=== PATIENT | male | born 1980 | race Caucasian/White ===

== ENCOUNTER 2016-09-27 08:12 | Outpatient (CLI) | payer OTHER ==
[~2016-09-27] VITALS: Ht 160 cm; Wt 57.3 kg
--- NOTE | ~2016-09-27 | HC ---
[facility] [place] [address] CONSULTATION Name: SUNNY SPANGLER Room #: DEP CL [place]#: [id number] Admission: 09/27/16 Attend Phys: Carlos A Chauhan Discharge: 09/30/16 Date of : 76 Report #: [id number] THIS REPORT FOR: //name// CC: Janet Singh DATE OF SERVICE: 09/27/2016 REASON FOR CONSULTATION: End-stage renal disease with hyperkalemia requiring hemodialysis. HISTORY OF PRESENT ILLNESS: This is a 36-year-old male who has end-stage renal disease and is a chronic hemodialysis patient. He has had a difficult past short period of time. He had apparently fallen at home, [facility], was transferred to [facility]. He has been at [facility] for the past couple of weeks. He has been dialyzing there. On his last dialysis day, which was 09/24/2016, he was noted to have a clotted fistula. It was arranged for him to come to [facility] today for a thrombectomy of the fistula, but upon arrival his potassium was 6.4, someone had a concern for this so a temporary dialysis catheter was placed and he was admitted to the hospital. He has still not received dialysis in spite of the fact he was suppose to go back to do dialysis at [facility]. In talking with the patient, he states he feels okay. It is somewhat remarkable that this fistula is the same fistula that he has had for 11 years of dialysis. His tells me it has been declotted about 6 times over the years. Diagnosis for his ESRD is hypertension, although there is a substantially strong family history that makes me wonder if this was not really focal sclerosis. He does have hypertension. He has had severe secondary hyperparathyroidism. He was actually [facility]roidectomy, but while there had a cardiac evaluation which showed substantial ischemic disease; he ended having 2 coronary artery stents placed for the coronary artery disease. He has anemia of end-stage renal disease. He has had bilateral hip replacement. He has had bilateral knee surgeries for patellar tendon ruptures. MEDICATIONS: Xanax 1 mg q. 8 hours p.r.n., amlodipine 10 mg daily, aspirin 81 mg daily, atorvastatin 20 mg daily, buspirone 10 mg t.i.d., PhosLo 667 mg t.i.d. with meals as a phosphate binder, Cinacalcet 45 mg daily, clonidine 0.1 mg b.i.d., Aranesp 25 mcg weekly for anemia, Colace, Marinol 2.5 mg t.i.d., Nephrocaps 1 daily, Venofer 200 mg, metoprolol 100 mg b.i.d., Remeron 7.5 mg at bedtime, pantoprazole 40 mg daily, Seroquel 25 mg, sertraline 100 mg daily, Renvela 3200mg t.i.d. with meals, Brilinta 90 mg q. 12 hours, Zanaflex 4 mg q. 8 hours for muscle spasm. ALLERGIES: MORPHINE causing itchiness and BENADRYL which causes leg shakes. [facility] [address] [place] [address] CONSULTATION Name: SUNNY SPANGLER Room #: DEP RHONDA Sarah#: [id number] Admission: 09/27/16 Attend Phys: Carlos A Chauhan Discharge: 09/30/16 Date of : 76 Report #: [id number] FAMILY HISTORY: Positive for renal failure in several different members of his family. His mother also had diabetes. SOCIAL HISTORY: The patient is , accompanied by his and 2 children at this time. He is disabled. He lives in [place], [place]. There has been difficulty because of him living in a house with stairs and he is now nonambulatory as far as working out living arrangements. REVIEW OF SYSTEMS: He is nonambulatory. He gets around in a wheelchair which he flores himself, but he does not have a way of getting up and down stairs around the house. He has chronic pain right now. Denies dyspnea, denies chest pain or palpitations and he denied that before he had the stents placed in his heart. Denies nausea or vomiting, tends to get constipated. He makes no urine at all; says his dialysis is fairly uneventful, gains are small in the intradialytic period. PHYSICAL EXAMINATION: GENERAL: Pleasant 36-year-old male, awake and responsive. He is lying in bed. He did have braces on both legs. VITAL SIGNS: Blood pressure 175/99, heart rate 67, temperature 98.3, oxygen saturation 99%. HEENT: Shows pupils are equal and reactive. Sclerae nonicteric. Oral mucosa is moist. NECK: Veins are not distended. CHEST: Clear bilaterally. HEART: Has a regular rate and rhythm. ABDOMEN: Has active bowel sounds. It is soft and nontender. No organomegaly or masses are palpable. EXTREMITIES: Show a very atrophic muscles in the legs. He has had multiple surgeries based on his scars. Left forearm radiocephalic fistula is in place, but is thrombosed rather densely. LABORATORY DATA: Sodium 136, potassium 6.4, chloride 98, bicarbonate 25, BUN 78, creatinine 13.0, calcium 8.0. White count 7.6, hemoglobin 10.0, hematocrit 31.0, platelets 475,000. ASSESSMENT: 1. End-stage renal disease. He has not had dialysis in 5 days. He is hyperkalemic. He needs dialysis. He has had a temporary catheter placed because he did not want to declot his fistula. We will dialyze him tonight and hopefully get him stable. He has been on dialysis now for many years and has suffered lot of the ravages of long-term end-stage renal disease with maybe not the most optimal care of himself. 2. Hypertension, on medications. 3. Anemia of end-stage renal disease, on Aranesp. 4. Secondary hyperparathyroidism. [facility] [address] [place] [address] CONSULTATION Name: SUNNY SPANGLER Room #: DEP RHONDA Sarah#: [id number] Admission: 09/27/16 Attend Phys: Carlos A Chauhan Discharge: 09/30/16 Date of : 76 Report #: [id number] 5. Hyperkalemia, again in need of dialysis today. PLAN: 1. Dialysis today. We will run him 3-1/2 hours on 2 potassium dialysate with only minimal ultrafiltration as ____. 2. Repeat labs in the morning. 3. We will follow along with care of this patient. <ELECTRONICALLY SIGNED> By: Suman Willoughby MD 10/06/16 1127 [id number] 2038 Abdiaziz Landry MD /penny
--- NOTE | ~2016-09-27 | H ---
[facility] [place] [address] HISTORY AND PHYSICAL Name: SUNNY SPANGLER Room #: 308-P [facility]..#: [id number] Admission: 09/27/16 Attend Phys: Carlos A Chauhan Discharge: Date of : 76 Report #: [id number] THIS REPORT FOR: //name// CC: Janet Singh DATE OF SERVICE: 09/27/2016 HISTORY OF PRESENT ILLNESS: The patient is a 36-year-old male who was transferred from [facility] to [facility] for malfunctioning AV shunt for his dialysis. The patient was found to have hyperkalemia. For this reason, he had his temporary dialysis catheter placed and after that he was admitted to the hospital for urgent hemodialysis. The patient was supposed to have this procedure done on Tuesday, but unfortunately the patient refused to go to [facility] and now he is at [facility] hoping to have this carried on today. PAST MEDICAL HISTORY: Significant for end-stage renal disease, on hemodialysis. The patient has history of hypertension. He had history of fracture of both femurs and he is treated conservatively without any surgery. The patient is treated with pain management. MEDICATIONS: Reviewed and reconciled. SOCIAL HISTORY: The patient smokes about half a pack of cigarettes a day. No history of alcohol use or drug use. FAMILY HISTORY: Noncontributory. ALLERGIES: MORPHINE and diphenhydramine. PHYSICAL EXAMINATION: VITAL SIGNS: On arrival to the hospital, the patient's temperature was 97.0, pulse 64, respirations 16, blood pressure 164/99. HEAD AND NECK: Unremarkable. NECK: Supple. LUNGS: Clear to auscultation. CARDIAC: S1, S2. ABDOMEN: Benign. Bowel sounds were positive. EXTREMITIES: Without any edema. LABORATORY DATA: The patient's lab showed white count of 7.6, hemoglobin 10, hematocrit 31, platelet count 475. The patient's INR was 1.1. The patient's basic metabolic panel showed a sodium of 136, potassium 6.4, chloride 98, bicarbonate 25, BUN 78, creatinine 13, glucose 78, calcium 8.0. The patient's chest x-ray showed no acute intrathoracic process, right temporary dialysis catheter in good position. A 12-lead EKG showed sinus rhythm, probable left [facility] [address] [place] [address] HISTORY AND PHYSICAL Name: SUNNY SPANGLER Room #: 308-P [facility] RHONDA Sarah#: [id number] Admission: 09/27/16 Attend Phys: Carlos A Chauhan Discharge: Date of : 76 Report #: [id number] ventricular hypertrophy, anterior Q wave possibly due to left ventricular hypertrophy, no previous EKG to compare with. ASSESSMENT AND PLAN: 1. Hyperkalemia. 2. End-stage renal disease, on hemodialysis. 3. Nausea and vomiting. 4. Bilateral femur fractures. The patient to resume his medications. The patient is supposed to have procedures to declog his dialysis catheter today. We will give the patient Zofran and do a KUB on the abdomen because of his nausea and vomiting and we will continue monitoring the patient. <ELECTRONICALLY SIGNED> By: Janet Kumari MD 09/29/16 0735 0636 0737 Janet Kumari MD /nt
--- NOTE | ~2016-09-27 | EKG ---
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
[2016-09-27] MEDS ORDERED: ARANESP25 MCG/1 M SUBQ (08:30)
[2016-09-27] MEDS ORDERED: BUSPIRONE HCL10 MG PO (08:31)
[2016-09-27] MEDS ORDERED: MARINOL 2.5 MG2.5 M1 PO (08:31)
[2016-09-27] MEDS ORDERED: VENOFER100 MG/52 IV (08:32)
[2016-09-27] MEDS ORDERED: LIDOCAINE 22 %/30 GM TOP (08:33)
[2016-09-27] MEDS ORDERED: SEROQUEL 25 MG25 M1 PO ×2 (08:34→15:18)
[2016-09-27] MEDS ORDERED: ZOLOFT50 MG PO (08:34)
[2016-09-27] MEDS ORDERED: VELTASSA8.4 GM PO (08:35)
[2016-09-27] MEDS ORDERED: REMERON15 MG PO (08:35)
[2016-09-27] MEDS ORDERED: NEPRO CARB STE237 ML PO (08:35)
[2016-09-27] MEDS ORDERED: RENAL CAPS SOFTG1 MG PO (08:35)
[2016-09-27] MEDS ORDERED: SENSIPAR90 MG PO (08:36)
[2016-09-27] MEDS ORDERED: BRILINTA90 MG PO (08:36)
[2016-09-27] MEDS ORDERED: NORVASC10 MG PO (08:36)
[2016-09-27] MEDS ORDERED: PROTONIX40 M1 PO (08:37)
[2016-09-27] MEDS ORDERED: COLACE100 MG PO (08:37)
[2016-09-27] MEDS ORDERED: LIPITOR 20 MG T20 M1 PO (08:38)
[2016-09-27] MEDS ORDERED: CLONIDINE0.1 PO (08:38)
[2016-09-27] MEDS ORDERED: METOPROLOL TAR100 MG PO (08:38)
[2016-09-27] MEDS ORDERED: VOLTAREN GEL 1100 G2 TOP (08:39)
[2016-09-27] MEDS ORDERED: RENVELA800 MG PO (08:39)
[2016-09-27] MEDS ORDERED: PHOSLO667 MG PO (08:40)
[2016-09-27 08:42] VITALS: BP 164/99
[2016-09-27 10:22] LABS: MCH 27.9 pg (26.0-34.0); MCHC 32.3 g/dL (28.0-37.0); MCV 86.4 fL (80.0-100.0); RBC 3.58 mil/uL (4.50-6.00); WBC 7.6 thou/uL (4.0-11.0)
[2016-09-27 10:33] LABS: INR 1.1; PROTIME 11.3 Seconds (9.3-11.4)
[2016-09-27 10:37] LABS: POTASSIUM 6.4 mmol/L (3.5-5.1)
[2016-09-27] MEDS ORDERED: XANAX1 MG PO (15:13)
[2016-09-27] MEDS ORDERED: ASPIR 8181 MG PO (15:13)
[2016-09-27] MEDS ORDERED: HEPARIN 1,100 UNIT/1 SUBQ (15:14)
[2016-09-27] MEDS ORDERED: DILAUDID1 MG/1 ML IV PUSH (15:15)
[2016-09-27] MEDS ORDERED: HYDROXYZINE HCL25 M1 PO (15:16)
[2016-09-27] MEDS ORDERED: ONDANSETRON HCL4 M3 PO (15:17)
[2016-09-27] MEDS ORDERED: ZANAFLEX4 MG PO (15:19)
[2016-09-27] MEDS ORDERED: DILAUDID 2 MG TA2 MG PO (15:20)
[2016-09-27 16:00] VITALS: BP 175/99
[2016-09-27 23:30] VITALS: BP 143/99
[2016-09-28 04:15] VITALS: BP 151/93
[2016-09-28 07:13] VITALS: BP 151/93
[2016-09-28 07:47] LABS: CALCIUM 8.3 mg/dL (8.5-10.1)
[2016-09-28 07:50] LABS: CREATININE 6.5 mg/dL (0.7-1.3); POTASSIUM 4.8 mmol/L (3.5-5.1)
[2016-09-28 08:22] LABS: ABSOLUTE NEUTROPHILS 4.9 thou/uL (1.4-8.2); BASOPHILS 0.6 % (0.0-2.0); EOSINOPHILS 3.2 % (0.0-3.0); HEMOGLOBIN 9.6 gm/dL (14.0-18.0); MCH 28.6 pg (26.0-34.0); MCHC 33.1 g/dL (28.0-37.0); MCV 86.4 fL (80.0-100.0); MONOCYTES 6.9 % (1.0-8.0); PLATELET COUNT 410 thou/uL (150-400); POLYS 74.3 % (36.0-66.0); RBC 3.35 mil/uL (4.50-6.00); RDW 15.8 % (10.5-14.5); WBC 6.6 thou/uL (4.0-11.0)
[2016-09-28 08:25] LABS: MANUAL DIFF NO
[2016-09-28 08:40] VITALS: BP 146/96
[2016-09-28 14:40] VITALS: BP 146/96
[2016-09-28 17:20] VITALS: BP 151/92
[2016-09-28 20:10] VITALS: BP 121/85
[2016-09-29 03:55] VITALS: BP 91/65
[2016-09-29 16:44] VITALS: BP 108/63
[2016-09-29 19:22] VITALS: BP 110/82
[2016-09-30 04:34] VITALS: BP 103/79
[2016-09-30 07:20] VITALS: BP 127/64
[2016-09-30 16:52] VITALS: BP 119/78
== END 2016-09-30 19:41 | disposition home or self-care (01) ==
LOC: SPEC 08:12 → 3N 08:12 → SPEC 09-30 18:32 → 3N 09-30 18:32 → SPEC 09-30 19:41
PROVIDERS: Internal Medicine; Radiology Vascular & Interventional Radiology
DX: T82.590A Other mechanical complication of surgically created arteriovenous fistula, initial encounter (principal); I12.0 Hypertensive chronic kidney disease with stage 5 chronic kidney disease or end stage renal disease; N18.6 End stage renal disease; Z99.2 Dependence on renal dialysis; Z87.81 Personal history of (healed) traumatic fracture; F17.210 Nicotine dependence, cigarettes, uncomplicated; Z88.8 Allergy status to other drugs, medicaments and biological substances
CPT/HCPCS: 10096; 32100

== ENCOUNTER 2016-11-24 14:18 | Inpatient (IN) | payer OTHER ==
[~2016-11-24] VITALS: Ht 160 cm; Wt 52.7 kg
--- NOTE | ~2016-11-24 | HC ---
[facility] [place] [address] CONSULTATION Name: SUNNY SPANGLER Room #: 412-P [facility] IN M.R.#: [id number] Admission: 11/24/16 Attend Phys: Janet Kumari MD Discharge: 11/30/16 Date of : 76 Report #: [id number] THIS REPORT FOR: //name// CC: Janet Kumari REASON FOR CONSULTATION: End-stage renal disease. REASON FOR ADMISSION: Transferred from [facility]. HISTORY OF PRESENT ILLNESS: The patient is a 36-year-old who is known to have end-stage renal disease for the last 10 years. He has a very complicated orthopedic history. This dates back to his stay in a [facility] when he fell and broke his bilateral hips and was treated accordingly. Apparently, the patient did not improve and he was transferred to [facility] for second opinion and from there he was told that there is not much to do and he was transferred to [facility]. He has done all his care at [facility] and was arranged to be admitted to [facility] for an orthopedic opinion. I am being asked to manage his end-stage renal disease. The patient had been on dialysis as I have stated for the last 10 years. He was just discharged from [facility] back in 09/2016 after he was admitted for hyperkalemia and had thrombosed AV fistula. He suffers from severe bone disease related to his end-stage renal disease. He tells me that he had been on dialysis for the last 10 years and has end-stage renal disease due to hypertension. He is also known to have coronary artery disease, status post stent x 2. PAST MEDICAL HISTORY: 1. End-stage renal disease, maintained on dialysis. 2. Bilateral hip replacement. 3. Left femur fracture. 4. Hypertension. 5. Bedridden. 6. Coronary artery disease. 7. Status post cath and stenting. 8. Hyperparathyroidism. 9. Hypothyroidism. 10. Renal osteodystrophy. 11. Seizure disorder. 12. Congenital valvular insufficiency. FAMILY HISTORY: Very significant for end-stage renal disease. SOCIAL HISTORY: He is , bedridden, disabled. MEDICATIONS: Currently, the patient is maintained on the following medications: 1. . 2. Iron. [facility] [address] [place] [address] CONSULTATION Name: SUNNY SPANGLER Room #: 412-P DIS IN M.R.#: [id number] Admission: 11/24/16 Attend Phys: Janet Kumari MD Discharge: 11/30/16 Date of : 76 Report #: [id number] 3. Mirtazapine. 4. Folic acid. 5. Cinacalcet. 6. Amlodipine. 7. Pantoprazole. 8. Metoprolol. 9. Atorvastatin. 10. Hydroxyzine. REVIEW OF SYSTEMS: GENERAL: No fever or chills. CARDIOVASCULAR: No chest pain or palpitation. PULMONARY: No cough or hemoptysis. GASTROINTESTINAL: No nausea or vomiting. MUSCULOSKELETAL: Diffuse musculoskeletal issues as described in the history of present illness. PHYSICAL EXAMINATION: VITAL SIGNS: Temperature was 36.6, blood pressure was 108/70. HEAD AND NECK: No jugular venous distention, no bruit, no thyromegaly. CHEST: Clear to auscultation bilaterally. CARDIOVASCULAR: Regular with no rub detected. There is a soft systolic murmur. ABDOMEN: Soft, nontender, without hepatosplenomegaly. LOWER EXTREMITIES: No edema with intact peripheral pulses. Upper extremity, left AV fistula. LABORATORY DATA: Laboratory values reviewed. ASSESSMENT, IMPRESSION AND PLAN: 1. End-stage renal disease. 2. Severe renal osteodystrophy. 3. Coronary artery disease. 4. Hypertension. 5. Hyperparathyroidism. 6. Hypothyroidism. 7. Dialysis will be arranged for the patient tomorrow. 8. Resume his medications. 9. The patient related to me that he is not going back to [facility] and he will going back to his dialysis unit. I made a call to his dialysis unit and informed them that the patient wants to get back to their dialysis unit and will have to arrange with a social research assistant regarding that. [address] [address] CONSULTATION Name: SUNNY SPANGLER Room #: 412-P [facility] IN M.R.#: [id number] Admission: 11/24/16 Attend Phys: Janet Kumari MD Discharge: 11/30/16 Date of : 76 Report #: [id number] 10. I doubt that there is anything to be done for his skeletal issues that I will defer to the primary and orthopedic. <ELECTRONICALLY SIGNED> By: Rosemarie Guan MD 12/04/16 1126 [id number] Rosemarie Guan MD /nt
--- NOTE | ~2016-11-24 | HC ---
[facility] [place] [address] CONSULTATION Name: SUNNY SPANGLER Room #: 412-P ADM IN M.R.#: [id number] Admission: 11/24/16 Attend Phys: Janet Kumari MD Discharge: Date of : 76 Report #: [id number] THIS REPORT FOR: //name// CC: Janet Kumari DATE OF SERVICE: 11/26/2016 HISTORY OF PRESENT ILLNESS: The patient is a 36-year-old male with history of end-stage renal disease on hemodialysis. Initially, evaluated at [facility] after falling and breaking bilateral hips. He was treated conservatively. He was taken to [facility] for second opinion and they agreed with the conservative treatment. He is bone stalk is quite poor with his end-stage renal disease. He was transferred to [place], but they have not been able to do any significant therapy without clearance form Ortho. He was transferred to [facility] for another Ortho assessment. He was seen by Orthopedics. They are the at nonweightbearing bilateral lower extremities. He is allowed some strengthening of the upper body, but only very light range of motion in lower extremities. He has had some hemoptysis and is being seen by Pulmonary. We are seeing him in rehabilitation medicine consultation. PAST MEDICAL HISTORY: Includes end-stage renal disease, on hemodialysis. He has been wheelchair bound for 4 years. He has a history of bilateral hip replacements, previous left femur fracture. He had surgery with immobilizer of both legs, MS x 2, osteoporosis, pneumonia, renal osteodystrophy, seizure disorder, left shoulder fracture, history of TIA, congenital insufficiency of the aortic valve. MEDICATIONS: Please see the full medication listing. HABITS: Tobacco, less than 1 pack per day. Alcohol use, no. SOCIAL HISTORY: House, , and sons who are young and of stocky build. There is a ramp, although there are steps that the family has been carrying him back and forth. He has a hospital bed commode, Yamil lift, wheelchair, ramp, they sponge bath the patient. They have found it easier actually to lift the patient rather than utilizing the Yamil lift mechanically as he is a very small man as far as boy habitus. The patient and are very adamant about wanting to return directly back home. The notes she has cared for the patient like this in the past. REVIEW OF SYSTEMS: Did not offer any current complaints of chest pain, shortness of breath or abdominal discomfort. He does have some chronic extremity pain complaints. PHYSICAL EXAMINATION: [facility] [address] [place] [address] CONSULTATION Name: SUNNY SPANGLER Room #: 412-P [facility] IN M.R.#: [id number] Admission: 11/24/16 Attend Phys: Janet Kumari MD Discharge: Date of : 76 Report #: [id number] GENERAL: A 36-year-old small statured male in no obvious distress. He is alert, pleasant. VITAL SIGNS: He is 5 feet 3 inches and weighs 114 pounds. HEENT: Appeared to be benign. Cranial nerves are grossly intact. EXTREMITIES: Upper extremities revealed functional range of motion with strength around a grade 4- to 3+/5. Lower extremities, he has the incision scars from the prior knee surgeries. No focal calf swelling. He does have 1+ distal edema. He tends to hold the legs external rotated. I only had him do very mild movement of the lower extremities now I would grade his strength at probably a grade 3 to 3+/5. ASSESSMENT: A 36-year-old white male with the following problem list: 1. Chronic femur fractures, nonweightbearing. 2. Wheelchair bound for 3 years. 3. End-stage renal disease, on hemodialysis. 4. Osteoporosis. 5. Renal osteodystrophy. 6. Prior bilateral hip replacements. 7. Chronic pain disorder. 8. Prior left shoulder fracture. 9. Seizure disorder. 10. Myocardial infarction x 2. PLAN: Family has cared for him before in a similar situation. and sons have lifted him into the wheelchair and he has the equipment issues, hospital bed commode, Yamil lift, wheelchair, ramp, etc., all as delineated above. The patient and very much want to return directly back home and the indicates that she would feel comfortable caring for him again. The patient's son is present as well. I am going to have the therapist work with the and family including both PT and OT reviewing transfer issues, ADLs, equipment issues, etc. in preparation for discharge back to the home setting. He is currently being observed by Pulmonary as well with his hemoptysis. Case management to assist as they are. I would anticipate he should be able to return directly back home with some home healthcare in the near future once education and training with the family is successfully done and he has felt medically stabilized for discharge. Thank you for asking us to assist in this patient's care and further orders are entered. By: [id number] Kole Hubbard MD /BERTA
[~2016-11-24 14:18] MED LIST: ARANESP25 MCG/1 M SUBQ; ASPIR 8181 MG PO; BRILINTA90 MG PO; BUSPIRONE HCL10 MG PO; CLONIDINE0.1 PO; COLACE100 MG PO; DILAUDID 2 MG TA2 MG PO; DILAUDID1 MG/1 ML IV PUSH; HEPARIN 1,100 UNIT/1 SUBQ; HYDROXYZINE HCL25 M1 PO; LIDOCAINE 22 %/30 GM TOP; LIPITOR 20 MG T20 M1 PO; MARINOL 2.5 MG2.5 M1 PO; METOPROLOL TAR100 MG PO; NEPRO CARB STE237 ML PO; NORVASC10 MG PO; ONDANSETRON HCL4 M3 PO; PHOSLO667 MG PO; PROTONIX40 M1 PO; REMERON15 MG PO; RENAL CAPS SOFTG1 MG PO; RENVELA800 MG PO; SENSIPAR90 MG PO; SEROQUEL 25 MG25 M1 PO; VELTASSA8.4 GM PO; VENOFER100 MG/52 IV; VOLTAREN GEL 1100 G2 TOP; XANAX1 MG PO; ZANAFLEX4 MG PO; ZOLOFT50 MG PO
[2016-11-24 15:55] VITALS: BP 119/90
[2016-11-24 20:00] VITALS: BP 114/86
[2016-11-25] VITALS: BP 108/81
[2016-11-25 04:00] VITALS: BP 103/85
[2016-11-25 07:51] VITALS: BP 108/70
[2016-11-25 14:23] LABS: CALCIUM 9.3 mg/dL (8.5-10.1); CREATININE 7.6 mg/dL (0.7-1.3); POTASSIUM 5.1 mmol/L (3.5-5.1)
[2016-11-25 14:26] LABS: ALBUMIN 3.9 g/dL (3.4-5.0); PHOSPHORUS 4.4 mg/dL (2.5-4.9)
[2016-11-25 16:25] VITALS: BP 105/73
[2016-11-25 20:00] VITALS: BP 126/97
[2016-11-26 04:54] LABS: HEMATOCRIT 32.1 % (42.0-52.0); HEMOGLOBIN 10.3 gm/dL (14.0-18.0); MCH 29.7 pg (26.0-34.0); MCHC 32.2 g/dL (28.0-37.0); MCV 92.2 fL (80.0-100.0); RBC 3.49 mil/uL (4.50-6.00); RDW 19.3 % (10.5-14.5); WBC 7.9 thou/uL (4.0-11.0)
[2016-11-26 05:02] LABS: POTASSIUM 5.5 mmol/L (3.5-5.1)
[2016-11-26 05:06] LABS: CREATININE 8.7 mg/dL (0.7-1.3)
[2016-11-26 05:19] VITALS: BP 105/71
[2016-11-26 07:21] VITALS: BP 100/76
[2016-11-26 14:59] LABS: ABSOLUTE NEUTROPHILS 5.7 thou/uL (1.4-8.2); BASOPHILS 0.7 % (0.0-2.0); EOSINOPHILS 2.6 % (0.0-3.0); HEMATOCRIT 32.9 % (42.0-52.0); LYMPHOCYTES 20.9 % (24.0-44.0); MCH 29.9 pg (26.0-34.0); MCHC 33.3 g/dL (28.0-37.0); MCV 89.7 fL (80.0-100.0); MONOCYTES 7.1 % (1.0-8.0); PLATELET COUNT 288 thou/uL (150-400); POLYS 68.7 % (36.0-66.0); RBC 3.67 mil/uL (4.50-6.00); RDW 19.4 % (10.5-14.5); WBC 8.2 thou/uL (4.0-11.0)
[2016-11-26 15:00] LABS: MANUAL DIFF NO
[2016-11-26 15:15] LABS: APTT 36.6 Seconds (24.5-32.8); INR 1.3; PROTIME 12.9 Seconds (9.3-11.4)
[2016-11-26 20:35] VITALS: BP 96/74
[2016-11-27 04:18] VITALS: BP 80/59
[2016-11-27 07:49] VITALS: BP 100/64
[2016-11-27 16:54] VITALS: BP 97/65
[2016-11-27 21:42] VITALS: BP 130/93
[2016-11-28 05:02] VITALS: BP 114/87
[2016-11-28 09:46] VITALS: BP 116/65
[2016-11-28 22:26] VITALS: BP 129/89
[2016-11-29 05:23] VITALS: BP 134/96
[2016-11-29 13:00] VITALS: BP 115/70
[2016-11-29 16:00] VITALS: BP 92/69
[2016-11-29 20:55] VITALS: BP 109/68
[2016-11-30 05:10] VITALS: BP 123/70
[2016-11-30] MEDS ORDERED: TIZANIDINE4 MG/1 TA1 PO (07:36)
[2016-11-30] MEDS ORDERED: ELIQUIS2.5 MG PO (07:36)
[2016-11-30] MEDS ORDERED: CATAPRES0.1 MG PO (07:37)
[2016-11-30] MEDS ORDERED: LOPRESSOR100 M1 PO (07:37)
[2016-11-30] MEDS ORDERED: HYDROCODON-ACE1 EAC7 PO (07:38)
[2016-11-30] MEDS ORDERED: OXYCONTIN10 M1 PO (07:38)
[2016-11-30] MEDS ORDERED: AMLODIPINE BESY10 MG PO (07:38)
[2016-11-30] MEDS ORDERED: REMERON15 MG PO (07:39)
[2016-11-30] MEDS ORDERED: ZOLOFT100 MG PO (07:39)
[2016-11-30] MEDS ORDERED: SEROQUEL 25 MG25 M1 PO (07:40)
[2016-11-30] MEDS ORDERED: XANAX1 MG PO (07:40)
[2016-11-30] MEDS ORDERED: ONDANSETRON HCL4 M2 PO (07:41)
[2016-11-30 08:00] VITALS: BP 118/65
[2016-11-30 12:20] VITALS: BP 118/65
[2016-11-30 13:06] VITALS: BP 118/65
== END 2016-11-30 17:45 | disposition home health service (06) | DRG 533 ==
LOC: 4N 14:18
PROVIDERS: Hospitalist; Internal Medicine Pulmonary Disease; Nurse Practitioner Adult Health
PROC: 5A1D70Z Performance of Urinary Filtration, Intermittent, Less than 6 Hours Per Day (ICD-10-PCS; principal; 2016-11-26)
PROC: 5A1D70Z Performance of Urinary Filtration, Intermittent, Less than 6 Hours Per Day (ICD-10-PCS; 2016-11-29)
DX: S72.92XA Unspecified fracture of left femur, initial encounter for closed fracture (principal); N18.6 End stage renal disease; R04.2 Hemoptysis; I12.0 Hypertensive chronic kidney disease with stage 5 chronic kidney disease or end stage renal disease; M84.451A Pathological fracture, right femur, initial encounter for fracture; S72.91XA Unspecified fracture of right femur, initial encounter for closed fracture; Z96.643 Presence of artificial hip joint, bilateral; I25.10 Atherosclerotic heart disease of native coronary artery without angina pectoris; E20.9 Hypoparathyroidism, unspecified; E03.9 Hypothyroidism, unspecified; G40.909 Epilepsy, unspecified, not intractable, without status epilepticus; N25.0 Renal osteodystrophy; M81.0 Age-related osteoporosis without current pathological fracture; G89.4 Chronic pain syndrome; F32.9 Major depressive disorder, single episode, unspecified; F41.9 Anxiety disorder, unspecified; E78.5 Hyperlipidemia, unspecified; K21.9 Gastro-esophageal reflux disease without esophagitis; F17.210 Nicotine dependence, cigarettes, uncomplicated; D63.8 Anemia in other chronic diseases classified elsewhere; Z74.01 Bed confinement status; Q24.8 Other specified congenital malformations of heart; I25.2 Old myocardial infarction; Z87.01 Personal history of pneumonia (recurrent); Z86.73 Personal history of transient ischemic attack (TIA), and cerebral infarction without residual deficits; Z99.3 Dependence on wheelchair; Z88.6 Allergy status to analgesic agent; Z88.8 Allergy status to other drugs, medicaments and biological substances; Z79.899 Other long term (current) drug therapy; Z95.5 Presence of coronary angioplasty implant and graft
CPT/HCPCS: 10790; 32100